=== PATIENT | female | born 1980 | race Hispanic/Latino ===

== ENCOUNTER 2016-06-02 03:27 | Emergency (ER) | payer MEDICARE, MEDICAID ==
[~2016-06-02 03:27] MED LIST: ALBU18HF INH; ALBU5SOL4 IN; CLOT45CR7 PV; DIAZ5TAB PO; FLUT12AE8 IH; GABA800T2 PO; GLIP10TA10 PO; HYDR-3740 PO; IBUP-1827 PO; INSU100V7 SUBQ; LISI10TA2 PO; MORP30TA91 PO; MULT-1007 PO; NORG1TAB16 PO; OMEP-113 PO; OXYC-245 PO; PRE10 PO; SIMV20TA4 PO
[2016-06-02 03:32] VITALS: BP 148/86; PULSE 104; RESP 20; O2SAT 98
[2016-06-02] MEDS ORDERED: DIME240C2 PO (03:39)
[2016-06-02] MEDS ORDERED: GLYB2.5T4 PO (03:41)
--- NOTE | 2016-06-02 04:41 | ED.REPORT ---
HPI-Neurologic Deficit Date of Service Jun 02, 2016 ED Provider: Justin Corado MD Patient is a 35 year old female with relapsing-remitting multiple sclerosis on Tecfidera and chronic back pain on narcotic pain medication who presents to the ED due to several episodes of right-sided pain, tingling, and weakness for the past 2 days, worse in severity tonight. On arrival to the ED her main complaints are neck pain, shoulder pain, and right sided leg pain. Her symptoms were especially concerning to the patient because typically she has neurological symptoms affecting her left side. Patient states that she first developed tingling and pain in her right arm and neck 2 days ago. Patient states that she became so weak that she had to hold on to the kitchen counter to prevent herself from falling. She reports ongoing dizziness and light headedness. She has had several other episodes of similar character since that time. Patient reports periods she was unable to swallow and that food was getting stuck in her throat. She also developed swelling, tingling, and pain in her right leg during the episodes today. The patient has only previously had swelling in her legs during one prior MS flare. Tonight she developed right leg and neck pain/tingling for the first time during one of these episodes, which was specially severe. She has tried her usual strategy for dealing with an MS exacerbation, which had improved her episodes over the past 2 days. The patient has plenty of her pain medications at home, Morphine, Oxycodone and Hydrocodone. She last took Oxycodone at 12:15am this evening, which did not improve her symptoms. She this found this very concerning, since typically her pain medication improves her pain. Patient has tried all of her usual techniques , including massage, ice and cold, and stretches. The patient reports having 2x episodes last week which she describes as "MS hugs". Patient was diagnosed with relapsing multiple sclerosis last summer, by Dr. Henderson at [facility]. She called Ryder boyd at 2:30am to describe her symptoms, with the on-call physician telling her to present to the ED. Her symptoms have improved on arrival to the ED, but she reports ongoing dizziness and tingling. She is also currently on antibiotics for UTI, with the patient finishing her antibiotics 4 days ago. She states that this was hard to treat and that she needed 2x courses of antibiotics. She denies ongoing dysuria, fever, or chills. Nursing Notes Stated Complaint: DIZZY,NECK PAIN WEAKNESS Chief Complaint: Neuro Symptoms/ Deficits Nursing Notes Reviewed: Yes Allergies: Coded Allergies: clarithromycin (Verified Allergy, Severe, panic attacks ever since taking , 06/02/16) Penicillins (Verified Allergy, Unknown, 06/02/16) Scheduled Albuterol Sulfate (Ventolin HFA Inhaler) 200 Puff/18 Gm Inhaler 2 PUFF INH QID Clotrimazole 1% (Gyne-Lotrimin 7 1%) 7 Appl/45 Gm Vagcream 1 APPL PV HS Diazepam (Valium) 5 Mg Tablet 5 MG PO TID Dimethyl Fumarate (Tecfidera) 240 Mg Capsule 240 MG PO BID Fluticasone Propionate (Flovent HFA 110 mcg) 12 Gm Aer.w.adap 2 PUFFS IH BID Gabapentin (Gabapentin) 800 Mg Tablet 800 MG PO QID Glipizide (Glipizide) 10 Mg Tablet 10 MG PO BID Glyburide (Glyburide) 2.5 Mg Tablet 2 MG PO DAILY Insulin Glargine (Lantus U100 Insulin Vial) 100 Unit/Ml Vial 20 UNIT SUBQ QPM- INSULIN Lisinopril (Lisinopril) 10 Mg Tablet 10 MG PO DAILY Magnesium Chloride (Slow-Mag) 64 Mg Tablet 64 MG PO DAILY Morphine Sulfate CR (Morphine Sulfate CR) 30 Mg Tablet.er 15 MG PO TID Norgestrel-Ethinyl Estradiol (Cryselle) 1 Each Tablet 1 EACH PO DAILY Omeprazole Magnesium (Omeprazole) 20 Mg Capsule.dr 20 MG PO DAILY Prednisone (PredniSONE) 10 Mg Tablet 10 MG PO DAILY Simvastatin (Simvastatin) 20 Mg Tablet 20 MG PO HS Scheduled PRN Albuterol Sulfate (Albuterol 5% Inh Soln) 5 Mg/1 Ml Solution 2.5 MG IN Q4 PRN PRN For Shortness of Breath Mix in nebulizer reservoir with sodium chloride nebulizer solution. Hydrocodone-Acetaminophen 10-325 mg (Hydrocodone-Acetaminophen 10-325 mg) 1 Tab Tablet 1 TAB PO Q4-6H PRN PRN For Pain Ibuprofen (Ibuprofen) 600 Mg Tablet 600 MG PO TID PRN PRN For Pain Ondansetron ODT (Zofran ODT) 4 Mg Tablet 4 MG PO Q4H PRN PRN For Nausea Oxycodone HCl/Acetaminophen (Percocet 10-325 mg Tablet) 1 Each Tablet 1 EACH PO Q4 PRN PRN For Pain Miscellaneous Medications Multivitamin (Multi-Vitamin Daily) 1 Each Tablet 1 EACH PO General Time Seen by Provider: 04:48 Chief Complaint Other (right sided pain, tingling, and swelling) Hx Obtained From: Patient Arrived By: Walk-in Sudden in Onset?: No Onset Occurred: 2 days ago Symptom Duration: Intermittent Progression Since Onset: Gradually worsening Location: : Arm right: Leg right: Neck Quality: Painful Severity: Current: Severe Severity: Maximum: Severe Recent Healthcare: No recent doctor visit, No recent hospitalization Similar Sx Previous: No Past Medical History Past Medical History Relapsing-remitting multiple sclerosis Chronic back pain with herniated discs Anxiety Fibromyalgia Reports: Asthma, Diabetes mellitus, GERD, Hyperlipidemia Past Surgical History right thumb surgery Reports: Cholecystectomy, Tonsillectomy Smoking History Never Smoker Social History Alcohol Use: Denies alcohol use Drug Use: Denies drug use Other Social History: Good social support, , Local resident Ambulatory Status Independent Review of Systems Constitutional: Denies: Chills, Fever Musculoskeletal: Reports: Extremity pain, Neck pain Neurologic: Reports: Dizziness, Lightheaded, Numbness, Shaking, Weakness Complete sys rev & neg: except as marked. Female: Denies: Dysuria Physical Exam Initial Vital Signs Vital Signs (First) Date Time Temp Pulse Resp B/P Pulse Ox O2 Delivery O2 Flow Rate FiO2 06/02/16 03:32 36.2 104 20 148/86 98 Room Air Initial VS: Reviewed Skin: Warm, Dry, No cyanosis Psychiatric: Mood/affect normal, Behavior normal, Normal thought content General/Constitutional: Awake, Alert Appearance / Presentation: Positive: Obese Head / Eyes: Atraumatic, Normocephalic, PERRL, EOMI Respiratory / Chest: Breath sounds NL, Breath sounds = bilat, No respiratory distress, No rales, No rhonchi, No wheezing Cardiovascular: Heart rate NL, Regular rhythm, Heart sounds NL Neurologic: Oriented X3, Speech NL, No sensory deficits, CN II - XII intact decreased motion and strength in the right arm, possibly secondary to pain. broad based gait, able to ambulate. Neck: Supple diffuse tenderness of the posterior neck, extending down to the shoulders. Upper Extremity / MS: Non-tender, No deformity, Vascular intact Lower Extremity / Pelvis / MS: Non-tender, No deformity, Neurologic intact, Vascular intact Interpretation & Diagnostics Interpretation & Diagnostics: Urine Dip: pH of 5, positive nitrites, trace protein, 500 glucose, ~50 blood, trace hemoglobin, all else within normal limits. Lab Results Interpretation Result Diagram: 06/02/16 0550 06/02/16 0550 Test 06/02/16 05:40 06/02/16 05:50 Urine Color Yellow (YELLOW) Urine Appearance Clear (CLEAR,HAZY) Urine pH 6.0 (5.0-8.0) Urine Specific [place] 1.020 (1.003-1.035) Urine Protein Tracemg/dL (NEG,TRACE) Urine Glucose (UA) >1000mg/dL (NEGATIVE) Urine Ketones Negativemg/dL (NEGATIVE) Urine Occult Blood Negative (NEGATIVE) Urine Nitrite Positive (NEGATIVE) Urine Bilirubin Negative (NEGATIVE) Urine Urobilinogen Normalmg/dL (NORMAL) Urine Leukocyte Esterase Negative (NEGATIVE) Urine RBC 0-2/hpf (0-2) Urine WBC 0-5/hpf (0-5) Urine Epithelial Cells Many/hpf (NONE-MOD) Urine Crystals None seen (NONE SEEN) Urine Bacteria Many/hpf (NONE-FEW) Urine Hyaline Casts None/lpf (NONE) Urine Granular Casts None seen (NONE SEEN) Urine Waxy Casts None seen (NONE SEEN) Urine Red Blood Cell Casts None seen (NONE SEEN) Urine White Blood Cell Casts None seen (NONE SEEN) Urine Mucus None seen (None Seen) Urine Trichomonas None seen (NONE SEEN) Urine Yeast None (NONE SEEN) Urinalysis Comment None Urine Culture Reflexed Indicated White Blood Count 12.0th/mm3 (3.8-10.1) Red Blood Count 3.65mil/mm3 (3.90-5.20) Hemoglobin 9.2g/dL (12.0-15.6) Hematocrit 28.6% (35.0-46.0) Mean Corpuscular Volume 78.4fL (81-100) Mean Corpuscular Hemoglobin 25.2pg (27.0-35.0) Mean Corpuscular Hemoglobin Concent 32.2% (32.0-37.0) Red Cell Distribution Width 15.5% (12.3-15.4) Platelet Count 182bil/L (150-400) Neutrophils (%) (Auto) 51.5% (40-74) Lymphocytes (%) (Auto) 37.7% (14-46) Monocytes (%) (Auto) 5.1% (4-12) Eosinophils (%) (Auto) 5.1% (0-5) Basophils (%) (Auto) 0.4% (0-3) Sodium Level 132mEq/L (134-144) Potassium Level 4.5mEq/L (3.5-5.2) Chloride Level 98mEq/L (97-108) Carbon Dioxide Level 19mmol/L (18-29) Blood Urea Nitrogen 13mg/dL (6-20) Creatinine 0.76mg/dL (0.57-1.00) Estimat Glomerular Filtration Rate 123mL/min (>59) Glucose Level 351mg/dL (60-99) Calcium Level 8.8mg/dL (8.5-10.1) Magnesium Level 1.5mg/dL (1.6-2.6) Total Bilirubin 0.2mg/dL (0.0-1.2) Aspartate Amino Transf (AST/SGOT) 47U/L (0-50) Alanine Aminotransferase (ALT/SGPT) 36U/L (0-32) Alkaline Phosphatase 76U/L (25-150) Total Protein 7.4g/dL (6.4-8.4) Albumin 3.8g/dL (3.4-5.0) Hold [place] Top Tube Received (Received) Re-Eval/Medical Decision Med Decision/Clinical Course This patient's workup was initiated by me and care turned over change of shift to Dr. Fallon Lehman: Rechecked the patient after assuming care from Dr. Corado. The patient reports improvement of pain and her tingling sensation but without complete resolution. Discussed her lab results. Offered to do a set of blood cultures to help exclude an occult infection which she declined. Talked about her anemia, low magnesium, and elevated glucose. She is understanding and is feeling better, agreeable to go home. She will followup as planned with her MS doctor today. Overall her symptoms seem more consistent with a flare of MS rather than sepsis. She is clinically very well-appearing. She has no focal neurologic deficits. She does have tenderness along the right trapezius muscle , without focal bony tenderness on the spine or obvious radicular neurologic deficits. She is agreeable to discharge. Source of Hx: Old records Discharge & Departure Shift Change Sign-Out Patient Care Transferred: Yes Discussed Complaint(s): Yes Laboratory Evaluation: Ordered, not yet done Impression: Primary Impression: Multiple sclerosis exacerbation Disposition: Home Discharge Condition All VS Reviewed: Yes Condition: Stable Additional Instructions: Overall it does not appear that you have a serious infection at this time. You are not having symptoms of a urinary tract infection and your urine does not appear to be infected. Your labs do show mild anemia and low magnesium which you will need to follow-up with your doctor regarding. We will prescribe you Zofran since you ran out. Additionally your glucose is elevated without signs of diabetic ketoacidosis, be sure to go home and take your diabetes meds as well. Continue your pain regimen. Monitor your temperature, if you develop a fever over 101 you should return to the ER or call your regular doctor. Follow-up with your MS doctor today for further evaluation and treatment. Return to the ER as needed for other concerning signs or symptoms. Referrals: Diaz Denise MD (PCP) Care Transferred to: Dr. Lehman Care Transferred at: 06:00 Scribe Attestation Portions of this note were transcribed by Nettie Hadley. Dr. Mak Beltran personally performed the history, physical exam and medical decision-making; I reviewed and confirmed the accuracy of the information in the transcribed note. Signed by: Wandy Segura, 06/02/2016 0630 Portions of this note were transcribed by Billie Shipman. Dr. Fallon Beltran personally performed the history, physical exam and medical decision-making; I reviewed and confirmed the accuracy of the information in the transcribed note. Signed by: Wandy Brewer, 06/02/2016 at 0720. copies to: Diaz Denise MD, Howard L MD Jun 02, 2016 04:41 Nettie Hadley Jun 02, 2016 04:48 Billie Shipman Jun 02, 2016 07:18 Ky Lehman DO Jun 02, 2016 07:23
[2016-06-02] MEDS ORDERED: HYDROmorphone 1 mg/mL Inj IM ONE (05:20)
[2016-06-02 06:04] LABS: BASOPHILS % (AUTO) 0.4 % (0-3)
[2016-06-02 06:07] LABS: EOSINOPHILS % (AUTO) 5.1 % (0-5); MONOCYTES % (AUTO) 5.1 % (4-12); Mean Corpuscular Hemoglobin 25.2 pg (27.0-35.0); Mean Corpuscular Volume 78.4 fL (81-100); NEUTROPHILS % (AUTO) 51.5 % (40-74); Platelet Count 182 bil/L (150-400)
[2016-06-02 06:22] LABS: APPEARANCE,URINE CLEAR (CLEAR,HAZY); COLOR,URINE YELLOW (YELLOW); OCCULT BLOOD,URINE NEGATIVE (NEGATIVE); UROBILINOGEN,URINE NORMAL (NORMAL)
[2016-06-02 06:40] LABS: Magnesium 1.5 mg/dL (1.6-2.6)
[2016-06-02] MEDS ORDERED: Ondansetron 8 mg ODT Tablet PO ONE (06:50)
[2016-06-02] MEDS ORDERED: Magnesium Chloride SR 64 mg ER24 Tablet PO ONE (07:00)
[2016-06-02] MEDS ORDERED: SLO64 PO (07:04)
[2016-06-02] MEDS ORDERED: ONDA4TAB9 PO (07:04)
[2016-06-02 07:45] VITALS: BP 141/90; PULSE 97; RESP 16; O2SAT 97
== END 2016-06-02 07:46 | disposition home or self-care (01) ==
LOC: SED 03:27
DX: G35 Multiple sclerosis (principal); R20.2 Paresthesia of skin; M54.2 Cervicalgia; M25.511 Pain in right shoulder; M79.661 Pain in right lower leg; R42 Dizziness and giddiness; R53.1 Weakness; J45.909 Unspecified asthma, uncomplicated; E11.9 Type 2 diabetes mellitus without complications; K21.9 Gastro-esophageal reflux disease without esophagitis; E78.5 Hyperlipidemia, unspecified; B96.20 Unspecified Escherichia coli [E. coli] as the cause of diseases classified elsewhere; Z88.1 Allergy status to other antibiotic agents; Z79.4 Long term (current) use of insulin; Z88.0 Allergy status to penicillin
CPT/HCPCS: 36415; 80053; 81000; 83735; 85025; 87086; 87088; 87186; 96372; 99284; J1170